=== PATIENT | male | born 1975 | race Caucasian/White ===

== ENCOUNTER 2019-06-22 01:05 | Observation (INO) ==
[2019-06-22] MEDS ORDERED: ONDANSETRON 4 MG/2 ML VIAL IV STA (01:21)
[2019-06-22] MEDS ORDERED: methylPREDNISolone SOD SUC 125 MG/2 ML VIAL IV STA (01:21)
[2019-06-22] MEDS ORDERED: ALBUTEROL NEB SOLN 5 MG/ML 20 ML/BOTTLE RESP TX SCH (01:30)
[2019-06-22 01:41] LABS: Basophils # 0.1 10*3/uL (0.0-0.2); Basophils % 0.4 % (0.0-0.8); Eosinophils # 1.3 10*3/uL (0.0-0.87); Eosinophils % 9.1 % (0.00-10.9); Hematocrit 45.6 VOL% (42.0-52.0); Hemoglobin 15.6 GM/DL (14.0-18.0); Immature Granulocytes % 0.5 %; Immature Granulocytes Absolute 0.07 #; Lymphocytes # 2.5 10*3/uL (1.4-4.0); Lymphocytes % 18.1 % (21.2-54.2); Mean Corpuscular HGB Conc 34.2 GM/DL (32-36); Mean Corpuscular Volume 90.7 FL (87-102); Monocytes % 9.1 % (1.7-12.7); Neutrophils % 62.8 % (38.7-73.9); Platelet Count 244 T/CUMM (130-400); Red Blood Count 5.03 MC/CUMM (3.8-5.5); Red Cell Distribution Width 12.3 % (9.3-17.3); White Blood Count 13.9 T/CUMM (4-12)
[2019-06-22 01:50] LABS: PT Patient Result 10.7 SECS
[2019-06-22] MEDS ORDERED: cefTRIAXone 1,000 MG in SODIUM CHLORIDE 0.9% 100 ML IV STA (01:54)
[2019-06-22 01:57] LABS: ABG Base Excess 1.5 MMOL/L (-2.5-2.5); ABG HCO3 26.3 MMOL/L (20-26); ABG PCO2 41.9 MM HG (35-48); ABG PH 7.415 (7.35-7.45); ABG PO2 53.2 MM HG (80-95); ABG TCO2 27.5 MMOL/L (23-27)
[2019-06-22 02:00] LABS: Alanine Aminotransferase 23 U/L (16-61); Alkaline Phosphatase 112 U/L (45-117); Aspartate Amino Transferase 18 U/L (0-37); Blood Urea Nitrogen 5 MG/DL (7-18); Calcium 9.4 MG/DL (8.5-10.1); Glucose 98 MG/DL (74-106); Osmolality,Calculated 273.5 MOS/KG (273-304); Total Protein 7.9 G/DL (6.4-8.3); Troponin I < 0.015 NG/ML (0.00-0.045)
[2019-06-22] MEDS ORDERED: MORPHINE 4 MG/1 ML VIAL IV PRN (03:27)
[2019-06-22] MEDS ORDERED: ACETAMINOPHEN 325 MG TABLET PO PRN (03:27)
[2019-06-22] MEDS ORDERED: ONDANSETRON 4 MG/2 ML VIAL IV PRN (03:27)
[2019-06-22] MEDS ORDERED: cefTRIAXone 1,000 MG VIAL ONE (03:32)
[2019-06-22] MEDS: SODIUM CHLORIDE 0.9% 1,000 ML IV SCH ×2 (04:23→15:19)
[2019-06-22 05:27] LABS: Basophils % 0.2 % (0.0-0.8); Eosinophils # 0.2 10*3/uL (0.0-0.87); Hematocrit 41.5 VOL% (42.0-52.0); Hemoglobin 14.3 GM/DL (14.0-18.0); Immature Granulocytes % 0.6 %; Immature Granulocytes Absolute 0.09 #; Lymphocytes # 0.3 10*3/uL (1.4-4.0); Lymphocytes % 2.1 % (21.2-54.2); Mean Corpuscular HGB Conc 34.5 GM/DL (32-36); Mean Platelet Volume 10.5 FL (9.6-12.0); Monocytes % 0.8 % (1.7-12.7); Neutrophils % 95.3 % (38.7-73.9); Platelet Count 193 T/CUMM (130-400); Red Blood Count 4.61 MC/CUMM (3.8-5.5); Red Cell Distribution Width 12.3 % (9.3-17.3); White Blood Count 14.6 T/CUMM (4-12)
[2019-06-22 05:47] LABS: Eosinophils 1 % (0-10); Lymphocytes 4 % (20-55); Segmented Neutrophils 95 % (50-85); Total Cells Counted 100
[2019-06-22 05:48] LABS: Hypochromasia 1+; Platelet Estimate Adequate
[2019-06-22 06:07] LABS: Albumin 3.3 G/DL (3.4-5.0); Bilirubin,Total 0.9 MG/DL (0.2-1.0); Calcium 8.8 MG/DL (8.5-10.1); Osmolality,Calculated 279.7 MOS/KG (273-304); Risk Ratio 2.98; VLDL CHOLESTEROL 8.2 MG/DL
[2019-06-22] MEDS ORDERED: cefTRIAXone 1,000 MG in SYRINGE 1 EACH IV SCH (07:00)
[2019-06-22] MEDS: DOCUSATE SODIUM 100 MG CAPSULE PO SCH ×2 (09:42→20:10)
[2019-06-22] MEDS: POTASSIUM CHLORIDE 20 MEQ TABLET PO PRN ×4 (09:43→17:00)
[2019-06-22] MEDS: PANTOPRAZOLE 40 MG TABLET PO SCH (09:43)
[2019-06-22] MEDS: methylPREDNISolone SOD SUC 40 MG/1 ML VIAL IV SCH ×2 (09:43→17:01)
[2019-06-22] MEDS: ENOXAPARIN 40 MG/0.4 ML SYRINGE SUBCUT SCH (09:43)
[2019-06-22] MEDS: amLODIPine 10 MG TABLET PO SCH (09:43)
[2019-06-22] MEDS ORDERED: AZITHROMYCIN 250 MG TABLET PO ONE (10:30)
[2019-06-22] MEDS: ALBUTEROL/IPRATROPIUM 3 ML NEB RESP TX SCH ×2 (13:34→19:32)
[2019-06-22] MEDS: DIPHENOXYLATE/ATROPINE 2.5-0.025 MG TABLET PO PRN ×2 (15:16→20:09)
[2019-06-23] MEDS: DIPHENOXYLATE/ATROPINE 2.5-0.025 MG TABLET PO PRN (01:10)
[2019-06-23] MEDS: SODIUM CHLORIDE 0.9% 1,000 ML IV SCH (01:11)
[2019-06-23] MEDS: methylPREDNISolone SOD SUC 40 MG/1 ML VIAL IV SCH ×2 (01:11→08:45)
[2019-06-23] MEDS: ALBUTEROL/IPRATROPIUM 3 ML NEB RESP TX SCH ×2 (01:20→06:51)
[2019-06-23 08:00] VITALS: BP 135/72
[2019-06-23] MEDS: amLODIPine 10 MG TABLET PO SCH (08:41)
[2019-06-23] MEDS: DOCUSATE SODIUM 100 MG CAPSULE PO SCH (08:41)
[2019-06-23] MEDS: PANTOPRAZOLE 40 MG TABLET PO SCH (08:42)
[2019-06-23] MEDS: ENOXAPARIN 40 MG/0.4 ML SYRINGE SUBCUT SCH (08:44)
[2019-06-23] MEDS ORDERED: AZITHROMYCIN 250 MG TABLET PO SCH (09:00)
[2019-06-23] MEDS ORDERED: LOSARTAN 50 MG TABLET PO SCH (09:00)
[2019-06-27 15:21] LABS: Alpha-1-Antitrypsin, Serum 201 mg/dL (100 - 190)
== END 2019-06-23 08:50 | disposition home or self-care (01) ==
LOC: N.EDINP 01:05 → N.ED 01:05 → N.2E 03:26
PROVIDERS: ADMIT Family Medicine; ATTEND Family Medicine